=== PATIENT | female | born 1995 | race Caucasian/White ===

== ENCOUNTER → 2016-07-05 | Outpatient (CLI) | payer BC ==
[~2016-07-05] MED LIST: ALBU1AER9 INH; BCPILLS PO; FEXO1TAB49 PO; HYDR-5688 PO; IBUP1CAP PO; LTMOPS OPB; ONDA4TAB7 SL
== END | disposition home or self-care (01) ==
LOC: C.PAPS 10:13
PROVIDERS: ATTEND Obstetrics & Gynecology
DX: Z01.419 Encounter for gynecological examination (general) (routine) without abnormal findings (principal)

== ENCOUNTER 2016-08-06 11:51 | Emergency (ER) | payer BC ==
[~2016-08-06] VITALS: Ht 162.6 cm; Wt 55.1 kg
[2016-08-06 11:56] VITALS: TEMP 37; Ht 162.6 cm; Wt 55.1 kg
[2016-08-06 13:11] LABS: BASO % 0.2 %; BASO ABS # 0.01 K/uL (0-0.2); COMPLETE YES; EOS % 7.2 %; HEMATOCRIT 40.3 % (37-47); IG% 0.2 %; LYMPH % 44.4 %; LYMPH ABS # 2.17 K/uL (1.2-3.4); MEAN CELL VOLUME 85.9 fL (80-100); MEAN CORPUSCULAR HEMOGLOBIN 30.9 pg (25-34); MEAN PLATELET VOLUME 8.7 fL (7.4-10.4); MONO % 7.4 %; NEUT % 40.6 %; PLATELET COUNT 310 K/uL (130-400); RED BLOOD COUNT 4.69 M/uL (4.2-5.4); WHITE BLOOD COUNT 4.89 K/uL (4.8-10.8)
[2016-08-06 13:12] LABS: URINE APPEARANCE CLEAR (CLEAR); URINE BILIRUBIN NEG (NEG); URINE COLOR YELLOW; URINE NITRITE NEG (NEG); URINE SPECIFIC GRAVITY 1.015 (1.000-1.030); UROBILINOGEN NEG (NEG); ZZUR CULT IF INDIC CLEAN CATCH NO
[2016-08-06 13:13] LABS: MANUAL MICROSCOPIC REQUIRED? NO; REVIEW REQ? NO
[2016-08-06 13:28] LABS: BUN/CREATININE RATIO 11.9 (10-20); CALCIUM 8.8 mg/dl (8.5-10.1); CREATININE 0.69 mg/dl (0.60-1.20); POTASSIUM 3.9 mmol/L (3.5-5.1)
[2016-08-06 13:29] LABS: PREG INTERNAL NEGATIVE QC NEG CLEAR BACKGROUND; PREG INTERNAL POSITIVE QC POS CONTROL LINE
[2016-08-06] MEDS ORDERED: OPTIRAY 320 IV PRN (13:30)
[2016-08-06 13:31] LABS: ALB/GLOB RATIO 1.2 (0.9-2)
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
[2016-08-06 17:29] VITALS: BP 118/78; PULSE 81; O2SAT 98
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
[2016-08-09 14:14] LABS: CHLAMYDIA TRACH RNA*** NOT DETECTED (NOT DETECTED); GC (NEIS GONORRHOEAE)RNA** NOT DETECTED (NOT DETECTED)
== END 2016-08-06 17:30 | disposition home or self-care (01) ==
LOC: C.EDB 11:52
DX: R10.31 Right lower quadrant pain (principal); J45.909 Unspecified asthma, uncomplicated; I73.00 Raynaud's syndrome without gangrene; Z83.3 Family history of diabetes mellitus; Z82.49 Family history of ischemic heart disease and other diseases of the circulatory system; Z82.0 Family history of epilepsy and other diseases of the nervous system

== ENCOUNTER → 2016-12-03 | Outpatient (CLI) | payer BC ==
[~2016-12-03] MED LIST changes: -ALBU1AER9 INH; -FEXO1TAB49 PO; -HYDR-5688 PO; -IBUP1CAP PO; -LTMOPS OPB; -ONDA4TAB7 SL
[2016-12-03 18:39] LABS: URINE APPEARANCE CLEAR (CLEAR); URINE BILIRUBIN NEG (NEG); URINE COLOR YELLOW; URINE NITRITE NEG (NEG); URINE PH 6.5 (4.5-7.5); URINE SPECIFIC GRAVITY 1.023 (1.000-1.030); UROBILINOGEN NEG (NEG)
[2016-12-03 18:48] LABS: MANUAL MICROSCOPIC REQUIRED? NO; REVIEW REQ? NO
== END | disposition home or self-care (01) ==
LOC: C.LABSPEC 17:29
PROVIDERS: ATTEND Physician Assistant
DX: R39.9 Unspecified symptoms and signs involving the genitourinary system (principal)

== ENCOUNTER 2017-08-03 16:49 | Emergency (ER) | payer OTHER, BC ==
[~2017-08-03] VITALS: Ht 152.4 cm; Wt 56.9 kg
[2017-08-03 16:53] VITALS: TEMP 36.5; Ht 152.4 cm; Wt 56.9 kg
[2017-08-03] MEDS ORDERED: OXYCODONE/ACETAMINOPHEN 5-325 TAB PO ONE (17:30)
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
[2017-08-03 19:23] VITALS: BP 129/66; PULSE 79; O2SAT 98
== END 2017-08-03 19:24 | disposition home or self-care (01) ==
LOC: C.EDB 16:50
DX: S20.212A Contusion of left front wall of thorax, initial encounter (principal); S43.402A Unspecified sprain of left shoulder joint, initial encounter; V47.5XXA Car driver injured in collision with fixed or stationary object in traffic accident, initial encounter; Y92.488 Other paved roadways as the place of occurrence of the external cause; I73.00 Raynaud's syndrome without gangrene; G90.59 Complex regional pain syndrome I of other specified site; E73.9 Lactose intolerance, unspecified; Z90.49 Acquired absence of other specified parts of digestive tract; Z79.3 Long term (current) use of hormonal contraceptives; Z83.3 Family history of diabetes mellitus; Z82.49 Family history of ischemic heart disease and other diseases of the circulatory system; Z82.0 Family history of epilepsy and other diseases of the nervous system